=== PATIENT | male | born 1995 | race Caucasian/White ===

== ENCOUNTER 2018-06-17 08:11 | Emergency (ER) | payer SELFPAY ==
[2018-06-17] MEDS: KETOROLAC 15 MG INJ IM (09:09)
== END 2018-06-17 09:55 | disposition home or self-care (01) ==
LOC: E/R 08:11
DX: S06.0X1A Concussion with loss of consciousness of 30 minutes or less, initial encounter (principal); S16.1XXA Strain of muscle, fascia and tendon at neck level, initial encounter; S89.91XA Unspecified injury of right lower leg, initial encounter; S02.80XA Fracture of other specified skull and facial bones, unspecified side, initial encounter for closed fracture; R07.9 Chest pain, unspecified; V49.50XA Passenger injured in collision with unspecified motor vehicles in traffic accident, initial encounter
CPT/HCPCS: 70450; 71045; 72125; 73562; 99285-25